=== PATIENT | female | born 1970 | race African-American/Black ===

== ENCOUNTER 2017-01-19 08:27 | Emergency (ER) | payer BC, OTHER ==
[~2017-01-19] VITALS: Ht 152.4 cm; Wt 88.5 kg
[~2017-01-19 08:27] MED LIST: AMLO10TA4 PO; CANA1TAB3 PO; CLON0.1T PO; HYDR50TA6 PO; LABE200T2 PO; LISI40TA PO; LORA10TA68 PO; METO25TA2 PO; METO25TA4 PO; SIMV40TA PO; hypertension med
[2017-01-19] MEDS ORDERED: fentaNYL PF VIAL 100 MCG/2 ML VIAL IV PRN (09:00)
--- NOTE | 2017-01-19 09:03 | PHYS DOC ---
Past Medical History Past Medical History: Bronchitis, Hypertension Additional Past Medical Histor: obesity, enlarged heart Past Surgical History: , Hysterectomy Additional Past Surgical Histo: back pain, gastric sleeve Alcohol Use: None Drug Use: None Adult General Chief Complaint Chief Complaint: ABDOMINAL PAIN HPI HPI Patient is a 46 year old female who presents with complaint of headache, dizziness, and abdominal pain. Patient states her symptoms started this morning. Patient states that she is having worsening dizziness when she tries to stand up and is having significant throbbing headache. Patient denies any unilateral weakness, difficulty with speech or swallowing, or vision changes. Patient states that she is having dull diffuse abdominal discomfort which she rates as 3 out of 10. Patient rates her headache currently as 8 out of 10. Patient has history of hypertension and states that she takes labetalol and hydralazine. Patient denies missing any doses of her medication. Patient follows a Dr. Lee for primary care. Patient has had no associated nausea, vomiting, or diarrhea with her symptoms. Review of Systems Review of Systems Constitutional: Lightheadedness, dizziness, denies fever [] Eyes: Denies change in visual acuity, redness, or eye pain [] HENT: Denies nasal congestion or sore throat [] Respiratory: Denies cough or shortness of breath [] Cardiovascular: Denies chest pain or edema [] GI: Denies abdominal pain, nausea, vomiting, bloody stools or diarrhea [] : Denies dysuria or hematuria [] Musculoskeletal: Denies back pain or joint pain [] Integument: Denies rash or skin lesions [] Neurologic: Denies headache, focal weakness or sensory changes [] Current Medications Current Medications Current Medications Medications (Trade) Dose Ordered Sig/Kya Start Time Stop Time Status Last Admin Dose Admin Amlodipine Besylate (Norvasc) 10 mg 1X STAT 01/19/17 10:07 01/19/17 10:09 DC 01/19/17 10:15 10 MG Fentanyl Citrate (Fentanyl 2ml Vial) 50 mcg PRN Q15MIN PRN 01/19/17 09:00 01/19/17 10:27 DC 01/19/17 09:10 50 MCG Labetalol HCl (Normodyne) 20 mg 1X ONCE 01/19/17 09:15 01/19/17 09:16 DC 01/19/17 09:11 20 MG Ondansetron HCl (Zofran) 4 mg 1X ONCE 01/19/17 09:15 01/19/17 09:16 DC 01/19/17 09:15 4 MG Sodium Chloride 1,000 ml @ 100 mls/hr Q10H 01/19/17 09:30 01/19/17 10:27 DC 01/19/17 09:11 100 MLS/HR Allergies Allergies Allergies Coded Allergies Type Severity Reaction Last Updated Verified morphine Allergy Intermediate 05/04/16 Yes Physical Exam Physical Exam Constitutional: Alert, obese, afebrile, appears in moderate discomfort. [] HENT: Normocephalic, atraumatic, bilateral external ears normal, oropharynx moist, no oral exudates, nose normal. [] Eyes: PERRLA, EOMI, conjunctiva normal, no discharge. [] Neck: Normal range of motion, no tenderness, supple, no stridor. [] Cardiovascular:Heart rate regular rhythm, no murmur [] Lungs & Thorax: Bilateral breath sounds clear to auscultation [] Abdomen: Bowel sounds normal, soft, no tenderness, no masses, no pulsatile masses. [] Skin: Warm, dry, no erythema, no rash. [] Back: No tenderness, no CVA tenderness. [] Extremities: No tenderness, no cyanosis, no clubbing, ROM intact, no edema. [] Neurologic: Alert and oriented X 3, normal motor function, normal sensory function, no focal deficits noted. [] Current Patient Data Vital Signs Vital Signs Date Time Temp Pulse Resp B/P (MAP) Pulse Ox O2 Delivery O2 Flow Rate FiO2 01/19/17 10:18 61 20 203/98 (133) 98 01/19/17 08:39 99.4 Room Air 99.4 Lab Values Laboratory Tests Test 01/19/17 07:47 01/19/17 08:38 01/19/17 09:00 POC Urine HCG, Qualitative Hcg negative (Negative) Urine Collection Type Unknown Urine Color Yellow Urine Clarity Cloudy Urine pH 6.0 Urine Specific [place] 1.020 Urine Protein 100 mg/dL (NEG-TRACE) Urine Glucose (UA) Negative mg/dL (NEG) Urine Ketones (Stick) Negative mg/dL (NEG) Urine Blood Trace (NEG) Urine Nitrite Negative (NEG) Urine Bilirubin Negative (NEG) Urine Urobilinogen Dipstick 0.2 mg/dL (0.2 mg/dL) Urine Leukocyte Esterase Negative (NEG) Urine RBC 0 /HPF (0-2) Urine WBC 0 /HPF (0-4) Urine Squamous Epithelial Cells Many /LPF Urine Bacteria 0 /HPF (0-FEW) White Blood Count 3.1 x10^3/uL (4.0-11.0) L Red Blood Count 4.12 x10^6/uL (3.50-5.40) Hemoglobin 12.7 g/dL (12.0-15.5) Hematocrit 37.1 % (36.0-47.0) Mean Corpuscular Volume 90 fL (79-100) Mean Corpuscular Hemoglobin 31 pg (25-35) Mean Corpuscular Hemoglobin Concent 34 g/dL (31-37) Red Cell Distribution Width 14.3 % (11.5-14.5) Platelet Count 275 x10^3/uL (140-400) Neutrophils (%) (Auto) 55 % (31-73) Lymphocytes (%) (Auto) 27 % (24-48) Monocytes (%) (Auto) 15 % (0-9) H Eosinophils (%) (Auto) 3 % (0-3) Basophils (%) (Auto) 1 % (0-3) Neutrophils # (Auto) 1.7 x10^3uL (1.8-7.7) L Lymphocytes # (Auto) 0.8 x10^3/uL (1.0-4.8) L Monocytes # (Auto) 0.5 x10^3/uL (0.0-1.1) Eosinophils # (Auto) 0.1 x10^3/uL (0.0-0.7) Basophils # (Auto) 0.0 x10^3/uL (0.0-0.2) Sodium Level 139 mmol/L (136-145) Potassium Level 4.0 mmol/L (3.5-5.1) Chloride Level 102 mmol/L (98-107) Carbon Dioxide Level 30 mmol/L (21-32) Anion Gap 7 (6-14) Blood Urea Nitrogen 18 mg/dL (7-20) Creatinine 1.3 mg/dL (0.6-1.0) H Estimated GFR (Cockcroft-Gault) 53.4 BUN/Creatinine Ratio 14 (6-20) Glucose Level 90 mg/dL (70-99) Calcium Level 9.2 mg/dL (8.5-10.1) Total Bilirubin 0.5 mg/dL (0.2-1.0) Aspartate Amino Transferase (AST) 15 U/L (15-37) Alanine Aminotransferase (ALT) 18 U/L (14-59) Alkaline Phosphatase 80 U/L (46-116) Creatine Kinase 87 U/L (26-192) Creatine Kinase MB (Mass) 0.6 ng/mL (0.0-3.6) Creatine Kinase MB Relative Index 0.7 % (0-4) Troponin I Quantitative < 0.017 ng/mL (0.000-0.055) Total Protein 7.7 g/dL (6.4-8.2) Albumin 3.7 g/dL (3.4-5.0) Albumin/Globulin Ratio 0.9 (1.0-1.7) L Lipase 130 U/L (73-393) Laboratory Tests 01/19/17 09:00 Laboratory Tests 01/19/17 09:00 EKG EKG Interpreted by me: Heart rate 66, sinus rhythm, normal intervals, normal axis, no acute ST/T-wave abnormalities present [] Radiology/Procedures Radiology/Procedures [facility] [address] [place], [place] [id number] IMAGING REPORT Signed PATIENT: ANDREW BROWNING ACCOUNT: [id number] : 1970 LOCATION: ER AGE: 46 SEX: F EXAM STATUS: REG ER ORD. PHYSICIAN: TOI NERI MD REASON: epigastric pain PROCEDURE: PORTABLE CHEST 1V Portable chest, 01/19/2017: History: Epigastric pain Comparison is made to a study from 05/04/2016. The heart is mildly enlarged. There are prominent mediastinal and right hilar lymph nodes compatible with old granulomatous disease. The pulmonary vascularity is normal. No pulmonary infiltrate is seen. There is no evidence of pleural fluid. IMPRESSION: 1. Mild cardiomegaly. 2. No acute abnormality is detected. DICTATED and SIGNED BY: MARINA CASAS MD DATE: 01/19/17 0938 CC: JOSE CARLOS LEE MD; TOI NERI MD ~ [facility] [address] [place] [address] IMAGING REPORT Signed PATIENT: ANDREW BROWNING ACCOUNT: [id number] : 1970 LOCATION: ER AGE: 46 SEX: F EXAM STATUS: REG ER ORD. PHYSICIAN: TOI NERI MD REASON: headache, critical hypertension PROCEDURE: CT HEAD WO CONTRAST CT of the head without contrast, 01/19/2017: History: Headache, hypertension The ventricles are within normal limits in size. There is no shift of the midline structures. There is no evidence of acute intracranial hemorrhage or mass effect. IMPRESSION: The CT of the head without contrast reveals no significant abnormality. [facility] Compliance Statement: One or more of the following individualized dose reduction techniques were utilized for this examination: 1. Automated exposure control 2. Adjustment of the mA and/or kV according to patient size 3. Use of iterative reconstruction technique DICTATED and SIGNED BY: MARINA CASAS MD DATE: 01/19/17 0941 CC: JOSE CARLOS LEE MD; TOI NERI MD ~ [] Course & Med Decision Making Course & Med Decision Making Pertinent Labs and Imaging studies reviewed. (See chart for details) Patient was given IV labetalol and fentanyl in the emergency department. On reevaluation, patient's blood pressure improved to 178/87. The patient states she is feeling better at this time. Patient's blood work and head CT are stable and show no acute abnormality. The patient stated that she filled her prescriptions at [facility] off of [address] [place] [address]. I contacted the pharmacy and spoke with Kalani, pharmacy operations coordinator, who informed me that the patient had not had her prescription filled since May 2016. She also noted that the patient's labetalol dosing was written for 2 tablets twice a day at that time. After further speaking with the patient, she admitted that she had not been taking her blood pressure medication for several months, however she started back on it over the past 2 weeks. I strongly urged the patient to take her medication as prescribed. I also spoke with the patient' s primary physician, Dr. Lee, who agreed with recommendations and agreed to follow-up with the patient in her office in the next 3-5 days. Recommended that the patient return to the emergency department for any worsening symptoms. Patient voiced understanding and in agreement with treatment plan. Dragon Disclaimer Dragon Disclaimer This electronic medical record was generated, in whole or in part, using a voice recognition dictation system. Departure Departure Impression: Primary Impression: Accelerated hypertension Disposition: 01 HOME, SELF-CARE Condition: IMPROVED Referrals: JOSE CARLOS LEE MD (PCP) Patient Instructions: Hypertension Additional Instructions: Be sure that you are taking your blood pressure medication as prescribed by your physician. Follow-up in 3-4 days with your primary doctor for reevaluation. Return to the emergency department for any worsening symptoms. TOI NERI MD Jan 19, 2017 09:03
[2017-01-19] MEDS ORDERED: LABETALOL 20 MG/4 ML DISP.SYRIN. IVP ONE (09:15)
[2017-01-19] MEDS ORDERED: ONDANSETRON PF 4 MG/2 ML VIAL. IV ONE (09:15)
[2017-01-19 09:23] LABS: BASO % 1 % (0-3); EOS % 3 % (0-3); HEMATOCRIT 37.1 % (36.0-47.0); HEMOGLOBIN 12.7 g/dL (12.0-15.5); LYMPH # 0.8 x10^3/uL (1.0-4.8); LYMPH % 27 % (24-48); MEAN CORPUSCULAR HEMOGLOBIN 31 pg (25-35); MEAN CORPUSCULAR HGB CONC 34 g/dL (31-37); MEAN CORPUSCULAR VOLUME 90 fL (79-100); MONO % 15 % (0-9); NEUT % 55 % (31-73); PLATELET COUNT 275 x10^3/uL (140-400); RED BLOOD COUNT 4.12 x10^6/uL (3.50-5.40); RED CELL DISTRIBUTION WIDTH 14.3 % (11.5-14.5); WHITE BLOOD COUNT 3.1 x10^3/uL (4.0-11.0)
[2017-01-19] MEDS ORDERED: IV NORMAL SALINE 1000ML BAG 1,000 ML IV SCH (09:30)
[2017-01-19 09:31] LABS: CALCIUM 9.2 mg/dL (8.5-10.1); CREATININE 1.3 mg/dL (0.6-1.0); GFR 53.4
[2017-01-19 09:37] LABS: ALBUMIN 3.7 g/dL (3.4-5.0); ALBUMIN/GLOBULIN RATIO 0.9 (1.0-1.7); TOTAL BILIRUBIN 0.5 mg/dL (0.2-1.0); TOTAL PROTEIN 7.7 g/dL (6.4-8.2)
--- NOTE | 2017-01-19 09:41 | RAD ---
Portable chest, 01/19/2017: History: Epigastric pain Comparison is made to a study from 05/04/2016. The heart is mildly enlarged. There are prominent mediastinal and right hilar lymph nodes compatible with old granulomatous disease. The pulmonary vascularity is normal. No pulmonary infiltrate is seen. There is no evidence of pleural fluid. IMPRESSION: 1. Mild cardiomegaly. 2. No acute abnormality is detected.
[2017-01-19 09:44] LABS: CKMB MASS 0.6 ng/mL (0.0-3.6)
--- NOTE | 2017-01-19 09:44 | RAD ---
CT of the head without contrast, 01/19/2017: History: Headache, hypertension The ventricles are within normal limits in size. There is no shift of the midline structures. There is no evidence of acute intracranial hemorrhage or mass effect. IMPRESSION: The CT of the head without contrast reveals no significant abnormality. PQRS Compliance Statement: One or more of the following individualized dose reduction techniques were utilized for this examination: 1. Automated exposure control 2. Adjustment of the mA and/or kV according to patient size 3. Use of iterative reconstruction technique
[2017-01-19 09:49] LABS: BILIRUBIN,URINE NEGATIVE (NEG); GLUCOSE,URINE NEGATIVE (NEG); NITRITE,URINE NEGATIVE (NEG); PROTEIN,URINE 100 mg/dL (NEG-TRACE); UROBILINOGEN,URINE 0.2 mg/dL (0.2 mg/dL)
[2017-01-19 10:04] LABS: BACTERIA,URINE 0 /HPF (0-FEW); RBC,URINE 0 /HPF (0-2); SQUAMOUS EPITHELIAL CELL,UR MANY /LPF; WBC,URINE 0 /HPF (0-4)
[2017-01-19] MEDS ORDERED: amLODIPine BESYLATE 5 MG TABLET PO STA (10:07)
[2017-01-19 10:18] VITALS: BP 203/98
--- NOTE | 2017-01-19 11:04 | EKG ---
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
== END 2017-01-19 10:25 | disposition home or self-care (01) ==
LOC: ER 08:27
DX: I10 Essential (primary) hypertension (principal); R51 Headache; R10.13 Epigastric pain; Z88.5 Allergy status to narcotic agent
CPT/HCPCS: 36415; 70450; 71010; 80053; 81001; 81025; 82553; 83690; 84484; 85025; 93005; 96361; 96374; 96375; 99285; J2405; J3010; J3490; J7030

== ENCOUNTER → 2018-01-16 | Outpatient (CLI) | payer OTHER ==
[~2018-01-16] MED LIST changes: -LABE200T2 PO; +LABE200T4 PO; +LISI-130 PO; -LISI40TA PO
--- NOTE | 2018-01-16 13:06 | RAD ---
DATE: 01/16/2018 EXAM: DIGITAL SCREEN BILAT W/CAD HISTORY: Routine screening COMPARISON: 01/23/2014 This study was interpreted with the benefit of Computerized Aided Detection (CAD). The breast parenchyma shows scattered fibroglandular densities. Breast parenchyma level B. FINDINGS: No new or enlarging breast densities are seen. A couple benign type calcifications are noted on the right. No suspicious microcalcifications have developed. IMPRESSION: There is no mammographic evidence of malignancy in either breast. BI-RADS CATEGORY: 2 BENIGN FINDING(S) RECOMMENDED FOLLOW-UP: 12M 12 MONTH FOLLOW-UP PQRS compliance statement: Patient information was entered into a reminder system with a target due date for the next mammogram. Mammography is a sensitive method for finding small breast cancers, but it does not detect them all and is not a substitute for careful clinical examination. A negative mammogram does not negate a clinically suspicious finding and should not result in delay in biopsying a clinically suspicious abnormality. "Our facility is accredited by the [employer] Mammography Program."
== END | disposition home or self-care (01) ==
LOC: MAMMO 12:21
PROVIDERS: ATTEND Family Medicine
DX: Z12.31 Encounter for screening mammogram for malignant neoplasm of breast (principal); I12.9 Hypertensive chronic kidney disease with stage 1 through stage 4 chronic kidney disease, or unspecified chronic kidney disease; E11.22 Type 2 diabetes mellitus with diabetic chronic kidney disease; N18.3 Chronic kidney disease, stage 3 (moderate); E78.5 Hyperlipidemia, unspecified; E87.6 Hypokalemia; K21.9 Gastro-esophageal reflux disease without esophagitis; J45.909 Unspecified asthma, uncomplicated; Z90.710 Acquired absence of both cervix and uterus; Z88.5 Allergy status to narcotic agent; Z83.3 Family history of diabetes mellitus
CPT/HCPCS: 77067

== ENCOUNTER 2018-03-22 10:12 | Emergency (ER) | payer OTHER, BC ==
[~2018-03-22] VITALS: Ht 152.4 cm; Wt 90.7 kg
[2018-03-22] MEDS ORDERED: HYDROcodone/APAP 5/325MG 1 TAB TABLET PO ONE (10:45)
--- NOTE | 2018-03-22 10:54 | PHYS DOC ---
Past Medical History Past Medical History: Bronchitis, Hypertension Additional Past Medical Histor: obesity, enlarged heart Past Surgical History: , Hysterectomy Additional Past Surgical Histo: back pain, gastric sleeve Alcohol Use: None Drug Use: None Adult General Chief Complaint Chief Complaint: LOWER EXT PAIN HPI HPI Patient is a 47 year old AA female who presents to the ER with complaints of left knee pain and swelling since awakening this morning. She denies any recent fall or injury. She states she has not had knee pain for the last 2 years after having a gastric sleeve and losing over 100 pounds. She denies any redness, warmth, or fever. States that the pain increases when she bears weight. Patient denies any recent air travel reports a 4 hour car trip to [place] last weekend. She denies any shortness of breath Review of Systems Review of Systems Constitutional: Denies fever or chills [] Musculoskeletal: Denies back pain, see HPI Integument: Denies erythema, rash or skin lesions [] Neurologic: Denies focal weakness or sensory changes [] All other systems were reviewed and found to be within normal limits, except as documented in this note. Current Medications Current Medications Current Medications Medications (Trade) Dose Ordered Sig/Kya Start Time Stop Time Status Last Admin Dose Admin Acetaminophen/ Hydrocodone Bitart (Lortab 5/325) 1 tab 1X ONCE 03/22/18 10:45 03/22/18 10:46 DC 03/22/18 10:48 1 TAB Allergies Allergies Allergies Coded Allergies Type Severity Reaction Last Updated Verified morphine Allergy Intermediate 05/04/16 Yes Physical Exam Physical Exam Constitutional: Well developed, well nourished, no acute distress, non-toxic appearance, obese. [] HENT: Normocephalic, atraumatic, bilateral external ears normal, nose normal. [] Eyes: PERRLA, conjunctiva normal, no discharge. [] Skin: Warm, dry, no erythema, no rash. [] Extremities: No cyanosis, no clubbing, L anterior knee 1+ edema and tenderness to palpation, limited ROM of L knee due to pain. Neurologic: Alert and oriented X 3, normal motor function, normal sensory function, no focal deficits noted. [] Psychologic: Affect normal, judgement normal, mood normal. [] Current Patient Data Vital Signs Vital Signs Date Time Temp Pulse Resp B/P (MAP) Pulse Ox O2 Delivery O2 Flow Rate FiO2 03/22/18 11:30 49 16 221/100 (140) 100 Room Air 03/22/18 10:20 97.1 97.1 EKG EKG [] Radiology/Procedures Radiology/Procedures PROCEDURE: KNEE LEFT 3V KNEE LEFT 3V Clinical Indication: LEFT KNEE PAIN/SWELLING SINCE THIS MORNING. NO KNOWN INJURY Comparison: None. Findings: Tricompartmental marginal osteophytes. There is moderate medial compartment narrowing. No acute fracture. There is moderate joint effusion. Patella in anatomic position. Mineralization is normal. Soft tissues unremarkable. IMPRESSION: 1. Moderate joint effusion. 2. No acute fracture. 3. 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 Procedure: Color flow Doppler, Doppler spectral analysis, and 2D images are obtained with and without compression in the area of the common femoral vein, superficial femoral vein - femoral vein junction, main femoral vein (superficial femoral vein) and popliteal vein. Veins of the proximal calf are also imaged. Findings: There is normal color flow, augmentation, and compressibility of all visualized vein segments. No evidence of deep venous thrombus is present. IMPRESSION: No evidence of left lower extremity deep venous thrombosis. Course & Med Decision Making Course & Med Decision Making Pertinent Labs and Imaging studies reviewed. (See chart for details) Dx: L knee pain and swelling L knee xray negative for any acute fx or dislocation, joint effusion present. LLE US negative for DVT. Prescription for naproxen written. Follow up with Dr. Suazo for further evaluation. Recommend ice, elevation, and compression. Activity as tolerated. Patient verbalized an understanding of home care, medications, follow-up, and return to ED instructions and was in agreement with the plan of care. [] Dragon Disclaimer Dragon Disclaimer This electronic medical record was generated, in whole or in part, using a voice recognition dictation system. Departure Departure Impression: Primary Impression: Left knee pain Additional Impression: Effusion of left knee joint Disposition: 01 HOME, SELF-CARE Condition: STABLE Referrals: JOSE CARLOS ORTEGA MD (PCP) GREG SUAZO MD Patient Instructions: Knee Effusion, [id number], Knee Pain, [id number] Additional Instructions: Fill prescription and use as directed. Recommend wearing a compression knee sleeve, applying ice, elevation, and activity as tolerated. Follow up with Dr. Suazo for further evaluation. Return to the ER if symptoms worsen. 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
--- NOTE | 2018-03-22 11:49 | RAD ---
KNEE LEFT 3V Clinical Indication: LEFT KNEE PAIN/SWELLING SINCE THIS MORNING. NO KNOWN INJURY Comparison: None. Findings: Tricompartmental marginal osteophytes. There is moderate medial compartment narrowing. No acute fracture. There is moderate joint effusion. Patella in anatomic position. Mineralization is normal. Soft tissues unremarkable. IMPRESSION: 1. Moderate joint effusion. 2. No acute fracture. 3. 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 Electronically signed by: Jean Decker MD (03/22/2018 11:46 AM) [id number]
--- NOTE | 2018-03-22 12:23 | RAD ---
Left lower extremity venous Doppler ultrasound History: Left leg pain and swelling post 4 + hr car ride 1 wk ago Comparison: None. Procedure: Color flow Doppler, Doppler spectral analysis, and 2D images are obtained with and without compression in the area of the common femoral vein, superficial femoral vein - femoral vein junction, main femoral vein (superficial femoral vein) and popliteal vein. Veins of the proximal calf are also imaged. Findings: There is normal color flow, augmentation, and compressibility of all visualized vein segments. No evidence of deep venous thrombus is present. IMPRESSION: No evidence of left lower extremity deep venous thrombosis. Electronically signed by: Jean Decker MD (03/22/2018 12:19 PM) [id number]
[2018-03-22] MEDS ORDERED: NAPR500T8 PO (12:36)
[2018-03-22 12:38] VITALS: BP 176/80
== END 2018-03-22 12:46 | disposition home or self-care (01) ==
LOC: ER 10:12
DX: M25.462 Effusion, left knee (principal); M25.562 Pain in left knee; I10 Essential (primary) hypertension; E66.9 Obesity, unspecified; Z68.39 Body mass index [BMI] 39.0-39.9, adult; Z90.710 Acquired absence of both cervix and uterus; Z98.890 Other specified postprocedural states; Z88.5 Allergy status to narcotic agent
CPT/HCPCS: 73562; 93971; 99284-25

== ENCOUNTER 2018-08-31 20:53 | Emergency (ER) | payer BC, OTHER ==
[~2018-08-31] VITALS: Ht 152.4 cm; Wt 89.8 kg
[~2018-08-31 20:53] MED LIST changes: +NAPR500T8 PO
[2018-08-31 21:30] LABS: BASO # 0.1 x10^3/uL (0.0-0.2); BASO % 1 % (0-3); EOS # 0.2 x10^3/uL (0.0-0.7); EOS % 3 % (0-3); HEMATOCRIT 37.5 % (36.0-47.0); HEMOGLOBIN 12.4 g/dL (12.0-15.5); LYMPH % 28 % (24-48); MEAN CORPUSCULAR HEMOGLOBIN 30 pg (25-35); MEAN CORPUSCULAR HGB CONC 33 g/dL (31-37); MEAN CORPUSCULAR VOLUME 91 fL (79-100); MONO # 0.6 x10^3/uL (0.0-1.1); MONO % 8 % (0-9); NEUT # 4.4 x10^3uL (1.8-7.7); NEUT % 60 % (31-73); PLATELET COUNT 315 x10^3/uL (140-400); RED CELL DISTRIBUTION WIDTH 14.1 % (11.5-14.5); WHITE BLOOD COUNT 7.2 x10^3/uL (4.0-11.0)
[2018-08-31] MEDS ORDERED: BUTALB/APAP/CAFEIN 50/325/40MG TABLET. PO ONE (21:30)
[2018-08-31] MEDS ORDERED: DEXAMETHASONE SOD PHOS 20 MG/5 ML VIAL. IV ONE (21:30)
[2018-08-31] MEDS ORDERED: METOCLOPRAMIDE HCL 10 MG/2 ML VIAL. IV ONE (21:30)
[2018-08-31] MEDS ORDERED: IV NORMAL SALINE 1000ML BAG 1,000 ML IV ONE (21:30)
[2018-08-31] MEDS ORDERED: diphenhydrAMINE 50 MG/ML VIAL IVP ONE (21:30)
[2018-08-31 21:43] LABS: CALCIUM 9.1 mg/dL (8.5-10.1); CREATININE 1.3 mg/dL (0.6-1.0); GFR 52.9; POTASSIUM 3.5 mmol/L (3.5-5.1)
[2018-08-31 21:54] LABS: ALBUMIN 3.6 g/dL (3.4-5.0); ALBUMIN/GLOBULIN RATIO 0.8 (1.0-1.7); CREATINE KINASE 67 U/L (26-192); MAGNESIUM 2.2 mg/dL (1.8-2.4); TOTAL BILIRUBIN 0.2 mg/dL (0.2-1.0); TOTAL PROTEIN 8.2 g/dL (6.4-8.2)
[2018-08-31 22:33] VITALS: BP 163/77
[2018-08-31] MEDS ORDERED: BUTA1TAB23 PO (22:39)
[2018-08-31] MEDS ORDERED: ONDA4TAB12 PO (22:39)
--- NOTE | 2018-08-31 22:39 | PHYS DOC ---
Past Medical History Past Medical History: Hypertension Additional Past Medical Histor: obesity, enlarged heart Past Surgical History: Hysterectomy Additional Past Surgical Histo: back pain, gastric sleeve Alcohol Use: None Drug Use: None Adult General Chief Complaint Chief Complaint: HEADACHE HPI HPI Patient is a 48 year old [f__sex] who presents with [] Review of Systems Review of Systems Constitutional: Denies fever or chills [] Eyes: Denies change in visual acuity, redness, or eye pain [] HENT: Denies nasal congestion or sore throat [] Respiratory: Denies cough or shortness of breath [] Cardiovascular: No additional information not addressed in HPI [] GI: Denies abdominal pain, nausea, vomiting, bloody stools or diarrhea [] : Denies dysuria or hematuria [] Musculoskeletal: Denies back pain or joint pain [] Integument: Denies rash or skin lesions [] Neurologic: Denies headache, focal weakness or sensory changes [] Endocrine: Denies polyuria or polydipsia [] All other systems were reviewed and found to be within normal limits, except as documented in this note. Current Medications Current Medications Current Medications Medications (Trade) Dose Ordered Sig/Kya Start Time Stop Time Status Last Admin Dose Admin Acetaminophen/ Butalbital/ Caffeine (Fioricet) 1 tab 1X ONCE 08/31/18 21:30 08/31/18 21:31 DC 08/31/18 21:44 1 TAB Dexamethasone Sodium Phosphate (Decadron) 10 mg 1X ONCE 08/31/18 21:30 08/31/18 21:31 DC 08/31/18 21:28 10 MG Diphenhydramine HCl (Benadryl) 50 mg 1X ONCE 08/31/18 21:30 08/31/18 21:31 DC 08/31/18 21:28 50 MG Metoclopramide HCl (Reglan Vial) 10 mg 1X ONCE 08/31/18 21:30 08/31/18 21:31 DC 08/31/18 21:29 10 MG Sodium Chloride 1,000 ml @ 1,000 mls/hr 1X ONCE 08/31/18 21:30 08/31/18 22:29 DC 08/31/18 21:28 1,000 MLS/HR Allergies Allergies Allergies Coded Allergies Type Severity Reaction Last Updated Verified morphine Allergy Intermediate 05/04/16 Yes Physical Exam Physical Exam Constitutional: Well developed, well nourished, no acute distress, non-toxic appearance. [] HENT: Normocephalic, atraumatic, bilateral external ears normal, oropharynx moist, no oral exudates, nose normal. [] Eyes: PERRLA, EOMI, conjunctiva normal, no discharge. [] Neck: Normal range of motion, no tenderness, supple, no stridor. [] Cardiovascular:Heart rate regular rhythm, no murmur [] Lungs & Thorax: Bilateral breath sounds clear to auscultation [] Abdomen: Bowel sounds normal, soft, no tenderness, no masses, no pulsatile masses. [] Skin: Warm, dry, no erythema, no rash. [] Back: No tenderness, no CVA tenderness. [] Extremities: No tenderness, no cyanosis, no clubbing, ROM intact, no edema. [] Neurologic: Alert and oriented X 3, normal motor function, normal sensory function, no focal deficits noted. [] Psychologic: Affect normal, judgement normal, mood normal. [] Current Patient Data Vital Signs Vital Signs Date Time Temp Pulse Resp B/P (MAP) Pulse Ox O2 Delivery O2 Flow Rate FiO2 08/31/18 22:33 70 16 98 08/31/18 21:05 97.8 199/100 (133) Room Air 97.8 Lab Values Laboratory Tests Test 08/31/18 21:25 White Blood Count 7.2 x10^3/uL (4.0-11.0) Red Blood Count 4.10 x10^6/uL (3.50-5.40) Hemoglobin 12.4 g/dL (12.0-15.5) Hematocrit 37.5 % (36.0-47.0) Mean Corpuscular Volume 91 fL (79-100) Mean Corpuscular Hemoglobin 30 pg (25-35) Mean Corpuscular Hemoglobin Concent 33 g/dL (31-37) Red Cell Distribution Width 14.1 % (11.5-14.5) Platelet Count 315 x10^3/uL (140-400) Neutrophils (%) (Auto) 60 % (31-73) Lymphocytes (%) (Auto) 28 % (24-48) Monocytes (%) (Auto) 8 % (0-9) Eosinophils (%) (Auto) 3 % (0-3) Basophils (%) (Auto) 1 % (0-3) Neutrophils # (Auto) 4.4 x10^3uL (1.8-7.7) Lymphocytes # (Auto) 2.0 x10^3/uL (1.0-4.8) Monocytes # (Auto) 0.6 x10^3/uL (0.0-1.1) Eosinophils # (Auto) 0.2 x10^3/uL (0.0-0.7) Basophils # (Auto) 0.1 x10^3/uL (0.0-0.2) Sodium Level 140 mmol/L (136-145) Potassium Level 3.5 mmol/L (3.5-5.1) Chloride Level 104 mmol/L (98-107) Carbon Dioxide Level 26 mmol/L (21-32) Anion Gap 10 (6-14) Blood Urea Nitrogen 25 mg/dL (7-20) H Creatinine 1.3 mg/dL (0.6-1.0) H Estimated GFR (Cockcroft-Gault) 52.9 BUN/Creatinine Ratio 19 (6-20) Glucose Level 110 mg/dL (70-99) H Calcium Level 9.1 mg/dL (8.5-10.1) Magnesium Level 2.2 mg/dL (1.8-2.4) Total Bilirubin 0.2 mg/dL (0.2-1.0) Aspartate Amino Transferase (AST) 14 U/L (15-37) L Alanine Aminotransferase (ALT) 16 U/L (14-59) Alkaline Phosphatase 103 U/L (46-116) Creatine Kinase 67 U/L (26-192) Creatine Kinase MB (Mass) < 0.5 ng/mL (0.0-3.6) Creatine Kinase MB Relative Index % (0-4) Troponin I Quantitative < 0.017 ng/mL (0.000-0.055) Total Protein 8.2 g/dL (6.4-8.2) Albumin 3.6 g/dL (3.4-5.0) Albumin/Globulin Ratio 0.8 (1.0-1.7) L Laboratory Tests 08/31/18 21:25 Laboratory Tests 08/31/18 21:25 EKG EKG @2117 NSR at 97bpm, NO ST elevation Radiology/Procedures Radiology/Procedures [] Course & Med Decision Making Course & Med Decision Making Pertinent Labs and Imaging studies reviewed. (See chart for details) [] Dragon Disclaimer Dragon Disclaimer This electronic medical record was generated, in whole or in part, using a voice recognition dictation system. Departure Departure Impression: Primary Impression: Headache Additional Impression: Hypertension Disposition: HOME, SELF-CARE Condition: IMPROVED (edema) Referrals: JOSE CARLOS ORTEGA MD (PCP) ALL ROJAS MD Patient Instructions: Headache, FAQs, Hypertension, [id number] Additional Instructions: Please take your regularly scheduled medications as prescribed. Please follow closely with your doctor as some adjustment of your blood pressure medication may be required. Scripts Butalb/Acetaminophen/Caffeine ([id number] 50-325-40) 1 Each Tablet 1 EACH PO Q6HRS PRN for HEADACHE, #14 TAB Prov: MARISSA SUAREZ DO 08/31/18 Ondansetron (ONDANSETRON ODT) 4 Mg Tab.rapdis 1 TAB PO PRN Q6-8HRS PRN for NAUSEA, #16 TAB Prov: MARISSA SUAREZ DO 08/31/18 Problem Qualifiers Primary Impression: Headache Headache type: unspecified Headache chronicity pattern: acute headache Intractability: not intractable Qualified Codes: R51 - Headache Additional Impression: Hypertension Hypertension type: unspecified Qualified Codes: I10 - Essential (primary) hypertension MARISSA SUAREZ DO Aug 31, 2018 22:39
--- NOTE | 2018-09-01 08:26 | EKG ---
[facility] [address] [place] [address] Test Date: 2018-08-31 Test Time: 21:17:10 Pat Name: ANDREW BROWNING Department: Room: Gender: Female Nurse Quality: : 1970 Requested By: MARISSA SUAREZ Order Number: [id number] Reading MD: Umang Goldman MD Measurements Intervals [place] Rate: 97 P: 26 UT: 184 QRS: 27 QRSD: 76 T: 27 QT: 322 QTc: 413 Interpretive Statements SINUS RHYTHM Electronically Signed On 09-02-2018 9:55:15 CDT by Umang Goldman MD
== END 2018-08-31 22:41 | disposition home or self-care (01) ==
LOC: ER 20:53
DX: R51 Headache (principal); I10 Essential (primary) hypertension; E66.9 Obesity, unspecified; Z68.38 Body mass index [BMI] 38.0-38.9, adult; Z90.710 Acquired absence of both cervix and uterus; Z88.5 Allergy status to narcotic agent
CPT/HCPCS: 36415; 80053; 82553; 83735; 84484; 85025; 93005; 96374; 96375; 99284; J1100; J1200; J2765; J7030

== ENCOUNTER 2019-02-24 15:33 | Emergency (ER) | payer BC ==
[~2019-02-24] VITALS: Ht 152.4 cm; Wt 90.7 kg
[~2019-02-24 15:33] MED LIST changes: +BUTA1TAB23 PO; +ONDA4TAB12 PO
[2019-02-24] MEDS ORDERED: IV NORMAL SALINE 1000ML BAG 1,000 ML IV ONE (16:15)
[2019-02-24 16:29] LABS: FECAL OB PT NEGATIVE (NEG)
--- NOTE | 2019-02-24 16:30 | PHYS DOC ---
Past Medical History Past Medical History: Hypertension Additional Past Medical Histor: obesity, enlarged heart Past Surgical History: Hysterectomy Additional Past Surgical Histo: back pain, gastric sleeve Alcohol Use: None Drug Use: None Adult General Chief Complaint Chief Complaint: RECTAL BLEED HPI HPI Patient is a 48 year old AA female who presents to the ER with complaints of bright red blood and yellow green mucous in stools since yesterday. She also complains of RLQ abdominal pain. Pt states prior to yesterday she had been constipated but since the onset of the blood and mucous her stools have not been hard. Pt denies any diarrhea, fever, cough, shortness of breath, chest pain, back pain, dysuria, or hematuria. She currently rates her pain a 3/10 on the pain scale, she denies any alleviating or exacerbating factors. Review of Systems Review of Systems Constitutional: Denies fever or chills [] Eyes: Denies change in visual acuity, redness, or eye pain [] HENT: Denies nasal congestion or sore throat [] Respiratory: Denies cough or shortness of breath [] Cardiovascular: No additional information not addressed in HPI [] GI: see HPI : Denies dysuria or hematuria [] Musculoskeletal: Denies back pain or joint pain [] Integument: Denies rash or skin lesions [] Neurologic: Denies headache, focal weakness or sensory changes [] Endocrine: Denies polyuria or polydipsia [] Complete systems were reviewed and found to be within normal limits, except as documented in this note. Current Medications Current Medications Current Medications Medications (Trade) Dose Ordered Sig/Kya Start Time Stop Time Status Last Admin Dose Admin Info (CONTRAST GIVEN -- Rx MONITORING) 1 each PRN DAILY PRN 02/24/19 17:30 02/24/19 18:45 DC Iohexol (Omnipaque 300 Mg/ml) 60 ml 1X ONCE 02/24/19 17:30 02/24/19 17:31 DC 02/24/19 17:38 60 ML Sodium Chloride 1,000 ml @ 1,000 mls/hr 1X ONCE 02/24/19 16:15 02/24/19 17:14 DC 02/24/19 16:50 1,000 MLS/HR Allergies Allergies Allergies Coded Allergies Type Severity Reaction Last Updated Verified morphine Allergy Intermediate 05/04/16 Yes Physical Exam Physical Exam Constitutional: Well developed, well nourished, no acute distress, non-toxic appearance, obese [] HENT: Normocephalic, atraumatic, bilateral external ears normal, oropharynx moist, no oral exudates, nose normal. [] Eyes: PERRLA, EOMI, conjunctiva normal, no discharge. [] Neck: Normal range of motion, no stridor. [] Cardiovascular:Heart rate regular rhythm, no murmur [] Lungs & Thorax: Bilateral breath sounds clear to auscultation [] Abdomen: Bowel sounds normal, soft, no tenderness, no masses, no pulsatile masses. Rectal Exam: Normal tone, No mass, Positive control, no obvious hemorrhoid Stool: yellow green mucous Guaiac: Negative[] Skin: Warm, dry, no erythema, no rash. [] Back: No tenderness Extremities: No cyanosis, no clubbing, ROM intact, no edema. [] Neurologic: Alert and oriented X 3, no focal deficits noted. [] Psychologic: Affect normal, judgement normal, mood normal. [] Current Patient Data Vital Signs Vital Signs Date Time Temp Pulse Resp B/P (MAP) Pulse Ox O2 Delivery O2 Flow Rate FiO2 02/24/19 18:20 78 16 170/90 (116) 98 Room Air 02/24/19 15:40 98.2 98.2 Lab Values Laboratory Tests Test 02/24/19 16:00 02/24/19 16:50 Stool Occult Blood Negative (NEG) White Blood Count 5.5 x10^3/uL (4.0-11.0) Red Blood Count 4.06 x10^6/uL (3.50-5.40) Hemoglobin 12.4 g/dL (12.0-15.5) Hematocrit 36.9 % (36.0-47.0) Mean Corpuscular Volume 91 fL (79-100) Mean Corpuscular Hemoglobin 31 pg (25-35) Mean Corpuscular Hemoglobin Concent 34 g/dL (31-37) Red Cell Distribution Width 13.6 % (11.5-14.5) Platelet Count 294 x10^3/uL (140-400) Neutrophils (%) (Auto) 53 % (31-73) Lymphocytes (%) (Auto) 35 % (24-48) Monocytes (%) (Auto) 9 % (0-9) Eosinophils (%) (Auto) 2 % (0-3) Basophils (%) (Auto) 1 % (0-3) Neutrophils # (Auto) 2.9 x10^3/uL (1.8-7.7) Lymphocytes # (Auto) 1.9 x10^3/uL (1.0-4.8) Monocytes # (Auto) 0.5 x10^3/uL (0.0-1.1) Eosinophils # (Auto) 0.1 x10^3/uL (0.0-0.7) Basophils # (Auto) 0.1 x10^3/uL (0.0-0.2) Urine Color Yellow Urine Clarity Clear Urine pH 5.5 Urine Specific [place] 1.020 Urine Protein Negative mg/dL (NEG-TRACE) Urine Glucose (UA) Negative mg/dL (NEG) Urine Ketones (Stick) Negative mg/dL (NEG) Urine Blood Negative (NEG) Urine Nitrite Negative (NEG) Urine Bilirubin Negative (NEG) Urine Urobilinogen Dipstick 0.2 mg/dL (0.2 mg/dL) Urine Leukocyte Esterase Negative (NEG) Urine RBC 0 /HPF (0-2) Urine WBC 1-4 /HPF (0-4) Urine Squamous Epithelial Cells Occ /LPF Urine Bacteria Few /HPF (0-FEW) Urine Mucus Mod /LPF Sodium Level 141 mmol/L (136-145) Potassium Level 3.5 mmol/L (3.5-5.1) Chloride Level 105 mmol/L (98-107) Carbon Dioxide Level 28 mmol/L (21-32) Anion Gap 8 (6-14) Blood Urea Nitrogen 19 mg/dL (7-20) Creatinine 1.2 mg/dL (0.6-1.0) H Estimated GFR (Cockcroft-Gault) 58.0 BUN/Creatinine Ratio 16 (6-20) Glucose Level 89 mg/dL (70-99) Calcium Level 9.4 mg/dL (8.5-10.1) Magnesium Level 2.3 mg/dL (1.8-2.4) Total Bilirubin 0.3 mg/dL (0.2-1.0) Aspartate Amino Transferase (AST) 15 U/L (15-37) Alanine Aminotransferase (ALT) 12 U/L (14-59) L Alkaline Phosphatase 95 U/L (46-116) Total Protein 7.6 g/dL (6.4-8.2) Albumin 3.4 g/dL (3.4-5.0) Albumin/Globulin Ratio 0.8 (1.0-1.7) L Laboratory Tests 02/24/19 16:50 Laboratory Tests 02/24/19 16:50 EKG EKG [] Radiology/Procedures Radiology/Procedures PROCEDURE: CT ABD PELV W/ IV CONTRST ONLY CT SCAN OF THE ABDOMEN AND PELVIS WITH IV CONTRAST. History: Lower abdominal pain and mucous and blood in stools Comparison:None. Procedure: Contiguous axial images of the abdomen and pelvis were performed after the administration of 75 cc of Omni 300 IV contrast and without oral contrast. CT Abdomen with contrast: Findings: The common bile is mildly dilated to 9 mm. There is a suture line along the stomach. Liver: Unremarkable Spleen: Unremarkable Pancreas: Unremarkable Adrenal Glands: Unremarkable Kidneys: Unremarkable There is no mass or lymphadenopathy. There is no free air. There is no free fluid. Is mild wall thickening of the left colon without surrounding inflammation. The appendix is normal. CT Pelvis with Contrast: Findings: The urinary bladder appears normal. There is no free fluid. There is no lymphadenopathy. Impression: Mild left-sided colitis could be infectious such as pseudomembranous colitis or could be inflammatory such as ulcerative colitis.[] Course & Med Decision Making Course & Med Decision Making Pertinent Labs and Imaging studies reviewed. (See chart for details) [] Dragon Disclaimer Dragon Disclaimer This electronic medical record was generated, in whole or in part, using a voice recognition dictation system. Departure Departure Impression: Primary Impression: Pseudomembranous colitis Disposition: 01 HOME, SELF-CARE Condition: STABLE Referrals: JOSE CARLOS ORTEGA MD (PCP) Patient Instructions: Colitis Additional Instructions: Fill prescription and take as directed. Increase clear fluids. Follow up with your primary care doctor in 1-2 days. Return to the ER if symptoms worsen. 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
[2019-02-24 16:58] LABS: BASO # 0.1 x10^3/uL (0.0-0.2); BASO % 1 % (0-3); EOS # 0.1 x10^3/uL (0.0-0.7); EOS % 2 % (0-3); HEMATOCRIT 36.9 % (36.0-47.0); HEMOGLOBIN 12.4 g/dL (12.0-15.5); LYMPH # 1.9 x10^3/uL (1.0-4.8); LYMPH % 35 % (24-48); MEAN CORPUSCULAR HEMOGLOBIN 31 pg (25-35); MEAN CORPUSCULAR HGB CONC 34 g/dL (31-37); MEAN CORPUSCULAR VOLUME 91 fL (79-100); MONO # 0.5 x10^3/uL (0.0-1.1); MONO % 9 % (0-9); NEUT # 2.9 x10^3/uL (1.8-7.7); NEUT % 53 % (31-73); PLATELET COUNT 294 x10^3/uL (140-400); RED BLOOD COUNT 4.06 x10^6/uL (3.50-5.40); RED CELL DISTRIBUTION WIDTH 13.6 % (11.5-14.5); WHITE BLOOD COUNT 5.5 x10^3/uL (4.0-11.0)
[2019-02-24 17:12] LABS: BILIRUBIN,URINE NEGATIVE (NEG); CLARITY,URINE CLEAR; COLOR,URINE YELLOW; NITRITE,URINE NEGATIVE (NEG); PH,URINE 5.5; PROTEIN,URINE NEGATIVE (NEG-TRACE); UROBILINOGEN,URINE 0.2 mg/dL (0.2 mg/dL)
[2019-02-24 17:16] LABS: CALCIUM 9.4 mg/dL (8.5-10.1); CREATININE 1.2 mg/dL (0.6-1.0); POTASSIUM 3.5 mmol/L (3.5-5.1)
[2019-02-24 17:22] LABS: ALBUMIN 3.4 g/dL (3.4-5.0); ALBUMIN/GLOBULIN RATIO 0.8 (1.0-1.7); MAGNESIUM 2.3 mg/dL (1.8-2.4); TOTAL BILIRUBIN 0.3 mg/dL (0.2-1.0); TOTAL PROTEIN 7.6 g/dL (6.4-8.2)
[2019-02-24 17:29] LABS: BACTERIA,URINE FEW /HPF (0-FEW); RBC,URINE 0 /HPF (0-2); SQUAMOUS EPITHELIAL CELL,UR OCC /LPF
[2019-02-24] MEDS ORDERED: CONTRAST GIVEN. MC PRN (17:30)
[2019-02-24] MEDS ORDERED: IOHEXOL 300 MG/ML 100ML VIAL. IV ONE (17:30)
--- NOTE | 2019-02-24 17:56 | RAD ---
CT SCAN OF THE ABDOMEN AND PELVIS WITH IV CONTRAST. History: Lower abdominal pain and mucous and blood in stools Comparison:None. Procedure: Contiguous axial images of the abdomen and pelvis were performed after the administration of 75 cc of Omni 300 IV contrast and without oral contrast. CT Abdomen with contrast: Findings: The common bile is mildly dilated to 9 mm. There is a suture line along the stomach. Liver: Unremarkable Spleen: Unremarkable Pancreas: Unremarkable Adrenal Glands: Unremarkable Kidneys: Unremarkable There is no mass or lymphadenopathy. There is no free air. There is no free fluid. Is mild wall thickening of the left colon without surrounding inflammation. The appendix is normal. CT Pelvis with Contrast: Findings: The urinary bladder appears normal. There is no free fluid. There is no lymphadenopathy. Impression: Mild left-sided colitis could be infectious such as pseudomembranous colitis or could be inflammatory such as ulcerative colitis. PQRS Compliance Statement: One or more of the following individualized dose reduction techniques were utilized for this examination: 1. Automated exposure control 2. Adjustment of the mA and/or kV according to patient size 3. Use of iterative reconstruction technique Electronically signed by: Feroz Hidalgo III, MD (02/24/2019 5:53 PM) [id number]
[2019-02-24 18:20] VITALS: BP 170/90
[2019-02-24] MEDS ORDERED: METR500T PO (18:37)
== END 2019-02-24 18:45 | disposition home or self-care (01) ==
LOC: ER 15:33
DX: A04.72 Enterocolitis due to Clostridium difficile, not specified as recurrent (principal); I10 Essential (primary) hypertension; Z90.710 Acquired absence of both cervix and uterus; E66.9 Obesity, unspecified; Z68.39 Body mass index [BMI] 39.0-39.9, adult; Z88.5 Allergy status to narcotic agent
CPT/HCPCS: 36415; 74177; 80053; 81001; 82274; 83735; 85025; 99285; J7030; Q9967

== ENCOUNTER → 2020-03-11 | Outpatient (CLI) | payer BC, OTHER ==
[~2020-03-11] MED LIST changes: +METR500T PO
--- NOTE | 2020-03-12 13:02 | RAD ---
DATE: 03/11/2020 8:34 AM EXAM: MAMMO KIMMY SCREENING BILATERAL HISTORY: Screening COMPARISON: 01/16/2018 Bilateral CC and MLO views of the breasts were performed. Bilateral breast tomosynthesis was performed in CC and MLO projections. This study was interpreted with the benefit of Computerized Aided Detection (CAD). FINDINGS: Breast Density: SCATTERED The breast parenchyma shows scattered fibroglandular densities. Breast parenchyma level B No suspicious masses, microcalcifications or architectural distortion is present to suggest malignancy in either breast. The visualized axillae are unremarkable. IMPRESSION: No mammographic evidence of malignancy. BI-RADS CATEGORY: 1 NEGATIVE RECOMMENDED FOLLOW-UP: 12M 12 MONTH FOLLOW-UP Annual screening mammography is recommended, unless clinically indicated sooner based on symptoms or change in physical exam. PQRS compliance statement: Patient information was entered into a reminder system with a target due date for the next mammogram. Mammography is a sensitive method for finding small breast cancers, but it does not detect them all and is not a substitute for careful clinical examination. A negative mammogram does not negate a clinically suspicious finding and should not result in delay in biopsying a clinically suspicious abnormality. "Our facility is accredited by the [employer] Mammography Program."
== END ==
LOC: MAMMO 08:28
PROVIDERS: ATTEND Family Medicine
DX: Z12.31 Encounter for screening mammogram for malignant neoplasm of breast (principal)
CPT/HCPCS: 77063; 77067

== ENCOUNTER → 2021-02-23 | Outpatient (CLI) | payer BC ==
[~2021-02-23] MED LIST changes: -HYDR50TA6 PO; +HYDR50TA9 PO
--- NOTE | 2021-02-24 11:36 | KCIC ---
Examination: MRI of the right knee without contrast HISTORY: History of primary osteoarthritis right knee, chronic right knee pain COMPARISON: None TECHNIQUE: Multiplanar, Multisequence MR imaging of the right knee was performed. FINDINGS: The anterior cruciate ligament and posterior cruciate ligament appears intact. The visualized medial meniscus demonstrates mild increased signal in the body and posterior horn likely secondary to degene rative change. The lateral meniscus appears intact. The medial collateral ligament appears intact. Th e lateral collateral ligamentous complex including the fibular collateral ligament, biceps femoris, p opliteus tendon appears intact.The extensor mechanism is intact. Deep fissuring of cartilage identified in the patellofemoral compartment. Small knee joint effusion. There is complete cartilage loss identified in medial compartment. There is mild superficial fraying of cartilage identified lateral compartment. Large osteophyte formation identified in the medial, lat eral, patellofemoral compartments likely degenerative changes. Mild increased T2 signal/edema identified in the soft tissue about the knee joint. There is mild trab ecular edema identified in the medial femoral condyle and medial tibial plateau with small subchondra l cystic changes probably secondary to degenerative change. The extensor mechanism appears intact. IMPRESSION: 1. Severe tricompartmental degenerative changes most in the medial compartment. 2. Grade III chondromalacia medial compartment. Grade II chondromalacia lateral, patellofemoral jeremie rtments. Electronically signed by: Sha Pulido MD (02/24/2021 11:33 AM) [id number]
== END ==
LOC: KCIC MRI 14:44
PROVIDERS: ATTEND Nurse Practitioner
DX: M17.11 Unilateral primary osteoarthritis, right knee (principal); M94.261 Chondromalacia, right knee; M25.461 Effusion, right knee; M25.761 Osteophyte, right knee
CPT/HCPCS: 73721

== ENCOUNTER → 2021-04-20 | Outpatient (CLI) | payer BC ==
--- NOTE | 2021-04-20 13:35 | RAD ---
INDICATION: 50 years of age asymptomatic female patient presents for screening mammography. TECHNIQUE: Full field craniocaudal and mediolateral oblique images of both breasts were obtained usi ng digital technique with tomosynthesis and also analyzed with computer-aided detection software. COMPARISON: 01/16/2018, 03/11/2020. BREAST COMPOSITION: Category B: There are scattered fibroglandular densities. FINDINGS: The parenchymal pattern appears stable. No suspicious masses, microcalcifications or architectural distortion is present to suggest malignanc y in either breast. The visualized axillae are unremarkable. IMPRESSION: No mammographic evidence of malignancy. RECOMMENDATION: Annual screening mammography is recommended, unless clinically indicated sooner based on symptoms or change in physical exam. BIRADS 2: BENIGN This study was interpreted with the benefit of Computerized Aided Detection (CAD). Patient information is entered into the reminder system with a target due date for the next screening mammogram. Mammography is the most sensitive method for finding small breast cancers, but it does not detect the m all and is not a substitute for careful clinical examination. A negative mammogram does not negate a clinically suspicious finding and should not result in delay in biopsying a clinically suspicious a bnormality. "Our facility is accredited by the [employer] Mammography Program." Electronically signed by: Nirmal Soni MD (04/20/2021 1:33 PM) [id number]
== END ==
LOC: MAMMO 09:41
PROVIDERS: ATTEND Family Medicine
DX: Z12.31 Encounter for screening mammogram for malignant neoplasm of breast (principal)
CPT/HCPCS: 77063; 77067